=== PATIENT | male | born 1970 | race Caucasian/White ===

== ENCOUNTER 2016-06-14 15:54 | Emergency (ER) | payer MEDICARE, MEDICAID ==
[~2016-06-14] VITALS: Ht 182.9 cm; Wt 93.0 kg
[~2016-06-14 15:54] MED LIST: /LANS30GR OR; ATARAX OR; BUSP10TA2; BUSP15TA OR; RISP1TAB; RISP1TAB OR; ZOLO100T; ZOLO100T OR; ZYPR10TA OR
[2016-06-14] MEDS ORDERED: ABIL1TAB7 (16:07)
[2016-06-14] MEDS ORDERED: hydroxyzine (16:07)
[2016-06-14] MEDS ORDERED: ZOLO100T (16:07)
[2016-06-14] MEDS ORDERED: Cogentin (16:07)
[2016-06-14] MEDS ORDERED: GENTAMICIN 0.3% OPHTH SOL 5 ML BTL OS ONE (17:00)
[2016-06-14] MEDS ORDERED: CLIN1CAP5 PO (17:19)
[2016-06-14] MEDS ORDERED: IBUP80TA PO (17:19)
[2016-06-14] MEDS ORDERED: CLINDAMYCIN 150 MG CAP PO ONE (17:30)
[2016-06-14] MEDS ORDERED: PERCOCET 5MG/325MG TAB PO ONE (17:30)
[2016-06-14] MEDS ORDERED: IBUPROFEN 800 MG TAB PO ONE (17:30)
[2016-06-14 17:37] VITALS: BP 132/77
== END 2016-06-14 17:42 | disposition home or self-care (01) ==
LOC: M ED 17:41
DX: K04.7 Periapical abscess without sinus (principal); K02.9 Dental caries, unspecified; K13.79 Other lesions of oral mucosa; F17.200 Nicotine dependence, unspecified, uncomplicated; Z79.899 Other long term (current) drug therapy

== ENCOUNTER 2017-01-04 09:01 | Emergency (ER) | payer MEDICAID, MEDICARE ==
[~2017-01-04] VITALS: Ht 182.9 cm; Wt 90.3 kg
[~2017-01-04 09:01] MED LIST changes: +ABIL20TA5; +CLIN150C14 PO; +Cogentin; +IBUP80TA PO; +hydroxyzine
[2017-01-04 09:02] VITALS: BP 92/61
[2017-01-04] MEDS ORDERED: AMOX500C PO (09:58)
[2017-01-04] MEDS ORDERED: INDO25CA PO (09:58)
== END 2017-01-04 10:07 | disposition home or self-care (01) ==
LOC: M ED 09:01
DX: K12.2 Cellulitis and abscess of mouth (principal); Z79.899 Other long term (current) drug therapy

== ENCOUNTER 2017-06-13 22:07 | Emergency (ER) | payer MEDICARE ==
[2017-06-13] MEDS: AUGMENTIN 875 MG TAB PO (23:37)
[2017-06-13] MEDS: PERCOCET 5MG/325MG TAB PO (23:37)
== END 2017-06-13 23:58 | disposition home or self-care (01) ==
LOC: M ED 22:07
DX: K08.89 Other specified disorders of teeth and supporting structures (principal); R22.0 Localized swelling, mass and lump, head; Z79.899 Other long term (current) drug therapy; F17.210 Nicotine dependence, cigarettes, uncomplicated
CPT/HCPCS: 99282

== ENCOUNTER 2019-04-17 05:59 | Emergency (ER) | payer MEDICARE ==
[~2019-04-17 05:59] MED LIST changes: +AMOX500C PO; +AUGM875T28 PO; +BENZ0.5T23; +INDO-16 PO; +PERC5TAB12 PO
[2019-04-17 08:16] VITALS: BP 126/86
== END 2019-04-17 08:20 | disposition home or self-care (01) ==
LOC: M ED 05:59
DX: F20.0 Paranoid schizophrenia (principal); F17.200 Nicotine dependence, unspecified, uncomplicated; K21.9 Gastro-esophageal reflux disease without esophagitis; Z79.899 Other long term (current) drug therapy

== ENCOUNTER 2019-04-30 08:39 | Emergency (ER) | payer MEDICARE, MEDICAID ==
[~2019-04-30] VITALS: Ht 185.4 cm; Wt 97.0 kg
[2019-04-30] MEDS ORDERED: DIVA250T67 (08:48)
[2019-04-30] MEDS ORDERED: [UNRECOGNIZED DRUG - OTHER] (08:48)
[2019-04-30] MEDS ORDERED: ARIPIPRAZOLE (08:48)
[2019-04-30] MEDS ORDERED: SERT-138 (08:48)
[2019-04-30] MEDS ORDERED: PRAZ1CAP (08:48)
[2019-04-30] MEDS ORDERED: TRAZ-252 (08:48)
[2019-04-30] MEDS: ACETAMINOPHEN 325 MG TAB PO ONE ×2 (09:14→09:29)
[2019-04-30] MEDS: traMADol 50 MG TAB PO ONE ×2 (09:14→09:29)
--- NOTE | 2019-04-30 09:30 | REP ---
Clinical: Trauma. Fall. Technique: Two views of the left scapula. Findings: Nondisplaced fractures involving the [id number] scapular body noted. The acromioclavicular joint appear grossly intact. There is evidence for old healed clavicle fracture. Impression: Nondisplaced fractures involving the [id number] scapular body/wing. Electronically Signed by Balaji Merchant MD 04/30/2019 09:22 A
[2019-04-30] MEDS ORDERED: HYDR-3713 PO (10:20)
[2019-04-30 10:31] VITALS: BP 125/78
--- NOTE | 2019-04-30 10:57 | CR ---
DATE: 04/30/2019 The patient states that he was walking down the steps of his porch when he slipped on his landlord's steps newly appreciated left shoulder pain when he landed onto his left side. The pain is 10/10 and is made worse with any sort of arm movement. It is alleviated with rest and pain medications. The pain is constant, dull ache of about 4-5. This is made worse by range of motion about 7 or 8 now. Unfortunately, patient is left-hand dominant. He did deny any fever, chills, nausea, vomiting or pain elsewhere. He was able to ambulate after the fall. REVIEW OF SYSTEMS: Complete 10-system of review was conducted. Pertinent positive and negatives per the history of present illness (HPI). All other systems negative. PAST MEDICAL HISTORY: Depression. Paranoid schizophrenia. PAST SURGICAL HISTORY: Appendectomy. MEDICATIONS: The patient is on sertraline. ALLERGIES: No known drug allergies. SOCIAL HISTORY: The patient is a social drinker, he states. Denies any other illicit drug use and does use pipe tobacco. PHYSICAL EXAMINATION: Patient is awake, alert, oriented, well dressed, appropriate affect, middle-age male. Normocephalic, atraumatic. LEFT UPPER EXTREMITY: Tender to palpation with a posterior shoulder pain with shoulder range of motion. No tenderness to palpation about the elbow, wrist or fingers. Positive anterior interosseous nerve (AIN), posterior interosseous nerve (PIN), and ulnar motor function. Superficial sensory intact to radial nerve, median nerve and ulnar nerve. Skin is intact. Radial pulses 2+ and regular rate and rhythm. RIGHT UPPER EXTREMITY: No tenderness to palpation. Good range of motion of the shoulder elbow and wrist. Skin is intact. Radial pulses are 2+ regular rate. Positive anterior interosseous nerve (AIN), posterior interosseous nerve (PIN), and ulnar motor function. Superficial sensory intact to radial nerve, median nerve and ulnar nerve. BILATERAL LOWER EXTREMITIES: No tenderness to palpation. Positive range of motion in the ankle, knees and hips. Positive EHL, FHL, tibialis, and gastroc motor function. Complete sensation intact to light touch superficial peroneal, deep peroneal, sural, saphenous, and tibial distributions. Skin intact. Posterior tibial pulse 2+, regular rate. IMAGING REVIEWED: Left scapular reviewed, two views demonstrating a comminuted fracture with mild displacement of the scapular body. No fracture or dislocation of the glenohumeral joint. DIAGNOSIS: Left scapular body fracture. PLAN: I discussed with patient at this point in time this will likely heal nonoperatively. He will be in a sling for comfort but range of motion as tolerated. [id number] pain medication for pain control and he can followup with me in 2 weeks and get repeat x-ray at that time. Patient expressed understanding and in agreement with the plan.
== END 2019-04-30 10:32 | disposition home or self-care (01) ==
LOC: M ED 08:39
DX: S42.112A Displaced fracture of body of scapula, left shoulder, initial encounter for closed fracture (principal); W10.8XXA Fall (on) (from) other stairs and steps, initial encounter; Y92.098 Other place in other non-institutional residence as the place of occurrence of the external cause; F32.9 Major depressive disorder, single episode, unspecified; F20.0 Paranoid schizophrenia; F17.200 Nicotine dependence, unspecified, uncomplicated; Z79.899 Other long term (current) drug therapy

== ENCOUNTER → 2020-03-24 | Outpatient (CLI) | payer SELFPAY ==
[~2020-03-24] MED LIST changes: +ARIPIPRAZOLE; -CLIN150C14 PO; +CLIN150C15 PO; +DIVA250T67; +HYDR-3713 PO; +PRAZ1CAP; +SERT-138; +TRAZ-252; +[UNRECOGNIZED DRUG - OTHER]
== END ==
LOC: M LABSMTC 13:39
PROVIDERS: ATTEND Pediatrics
DX: Z20.822 Contact with and (suspected) exposure to COVID-19 (principal)

== ENCOUNTER → 2020-09-28 | Outpatient (CLI) | payer MEDICARE, MEDICAID ==
--- NOTE | 2020-09-28 10:49 | REP ---
INDICATION: AAA CURRENT SMOKER SCREENING. COMPARISON: None. TECHNIQUE: Real-time sonographic evaluation of the abdominal aorta performed. The study is limited due to bowel gas. FINDINGS: There is no sonographic evidence of abdominal aortic aneurysm. Maximum AP diameter of abdominal aorta: The proximal abdominal aorta and the portion at the level of the renal arteries could not be visualized. Mid abdominal aorta:1.9 cm. Distal abdominal aorta (prebifurcation): 1.5 cm. Common iliac arteries could not be visualized. IMPRESSION: No sonographic evidence of abdominal aortic aneurysm of the visualized portions, specifically of the mid and distal abdominal aorta. Proximal abdominal aorta to the level of the renal arteries, and the common iliac arteries could not be visualized. <Electronically signed by Devin Watson > 09/28/20 [id number]
== END ==
LOC: M RAD 09:06
PROVIDERS: ATTEND Student in an Organized Health Care Education/Training Program
DX: F17.200 Nicotine dependence, unspecified, uncomplicated (principal)

== ENCOUNTER → 2020-10-16 | Outpatient (CLI) | payer MEDICARE, MEDICAID ==
[~2020-10-16] MED LIST changes: -CLIN150C15 PO; +CLIN150C17 PO
--- NOTE | 2020-10-16 19:41 | REP ---
INDICATION: SPRAIN OF UNSPECIFIED LIGAMENT OF LEFT ANKLE, INIT ENCNTR COMPARISON: None. TECHNIQUE: There are four views. FINDINGS: There is no fracture or dislocation. Mineralization and joint spaces are normal. There are no calcifications or foreign bodies. IMPRESSION: Negative left ankle. <Electronically signed by Devin Silva > 10/16/201936
--- NOTE | 2020-10-16 19:42 | REP ---
INDICATION: SPRAIN OF UNSPECIFIED LIGAMENT OF LEFT ANKLE, INIT ENCNTR COMPARISON: None. TECHNIQUE: There are four views. FINDINGS: There is no fracture or dislocation. Mineralization and joint spaces are normal. There are no calcifications or foreign bodies. IMPRESSION: Negative left foot.. <Electronically signed by Devin Silva > 10/16/201937
== END ==
LOC: M RAD 17:55
PROVIDERS: ATTEND Physician Assistant
DX: S93.602A Unspecified sprain of left foot, initial encounter (principal); S93.402A Sprain of unspecified ligament of left ankle, initial encounter; X58.XXXA Exposure to other specified factors, initial encounter; Y92.9 Unspecified place or not applicable; Y93.9 Activity, unspecified; Y99.9 Unspecified external cause status

== ENCOUNTER 2024-11-26 08:35 | Emergency (ER) | payer MEDICAID, MEDICARE ==
[~2024-11-26] VITALS: Ht 182.9 cm; Wt 97.8 kg
[~2024-11-26 08:35] MED LIST changes: +BENZ0.5T2; -BENZ0.5T23
[2024-11-26 08:38] VITALS: BP 133/88; TEMP 99.3; O2SAT 96
[2024-11-26] MEDS ORDERED: ZOLO100T PO (08:48)
== END 2024-11-26 11:37 | disposition left against medical advice (07) ==
LOC: M ED 08:35
DX: F20.9 Schizophrenia, unspecified (principal); F17.210 Nicotine dependence, cigarettes, uncomplicated; F10.10 Alcohol abuse, uncomplicated; Z79.899 Other long term (current) drug therapy; Z53.9 Procedure and treatment not carried out, unspecified reason

== ENCOUNTER 2024-11-27 09:32 | Emergency (ER) | payer MEDICARE ==
[~2024-11-27] VITALS: Ht 182.9 cm; Wt 97.7 kg
[~2024-11-27 09:32] MED LIST changes: +ZOLO100T PO
[2024-11-27 09:41] VITALS: BP 126/86; TEMP 97.3; O2SAT 97
== END 2024-11-27 09:45 | disposition left against medical advice (07) ==
LOC: M ED 09:32
DX: Z53.21 Procedure and treatment not carried out due to patient leaving prior to being seen by health care provider (principal)

== ENCOUNTER 2024-11-29 20:57 | Inpatient (IN) | payer MEDICARE ==
[~2024-11-29] VITALS: Ht 182.9 cm; Wt 95.3 kg
[~2024-11-29 20:57] MED LIST changes: -DIVA250T67; +DIVA250T67 PO
[2024-11-29 21:42] LABS: PLATELET COUNT, AUTOMATED 269 10^3/uL (150-450)
[2024-11-29 21:59] LABS: AMPHETAMINES LEVEL URINE NEGATIVE (NEGATIVE)
[2024-11-29 22:00] LABS: BARBITURATES URINE NEGATIVE (NEGATIVE); CANNABINOIDS URINE NEGATIVE (NEGATIVE); COCAINE METABOLITE URINE NEGATIVE (NEGATIVE); METHADONE URINE NEGATIVE (NEGATIVE); OPIATES URINE NEGATIVE (NEGATIVE); PHENCYCLIDINE URINE NEGATIVE (NEGATIVE)
[2024-11-29 22:02] LABS: BENZODIAZEPINES URINE POSITIVE (NEGATIVE)
[2024-11-29 22:04] LABS: ETHYL ALCOHOL (ETHANOL) < 0.003 % (0.000-0.010)
[2024-11-29 22:05] LABS: SALICYLATE LEVEL < 3.0 MG/DL (<30)
[2024-11-29 22:06] LABS: ALT/SGPT 49 U/L (7.0-40); AST/SGOT 59 U/L (<34); CALCIUM LEVEL 9.1 MG/DL (8.5-10.1); CARBON DIOXIDE LEVEL 25 MMOL/L (20-31); CHLORIDE LEVEL 110 MMOL/L (98-107); CREATININE FOR GFR 1.05 MG/DL (0.70-1.30); GLOMERULAR FILTRATION RATE 83.3 (>56); POTASSIUM SERUM 4.0 MMOL/L (3.5-5.1); SODIUM LEVEL 143 MMOL/L (136-145)
[2024-11-29] MEDS: LORazepam 1 MG TAB PO STA (22:31)
[2024-11-29] MEDS ORDERED: MAALOX 30 ML SUSP *UDC PO PRN (23:15)
[2024-11-29] MEDS ORDERED: MOM 30 ML SUSPENSION UDC PO PRN (23:15)
[2024-11-30 02:57] VITALS: BP 136/72; TEMP 97; O2SAT 96
[2024-11-30] MEDS ORDERED: ABIL1INJ IM (09:15)
[2024-11-30] MEDS ORDERED: HOME MED LIST COMPLETE! XX SCH (09:20)
[2024-11-30 15:25] VITALS: BP 144/97; TEMP 97.3; O2SAT 96
[2024-11-30] MEDS: LORazepam 1 MG TAB PO PRN (17:49)
[2024-11-30] MEDS: HALOPERIDOL 5 MG TAB PO PRN (17:49)
[2024-11-30] MEDS: traZODone 50 MG TAB PO PRN (20:11)
[2024-11-30] MEDS: DIVALPROEX 500 MG *ER* TAB PO SCH (20:11)
[2024-12-01 06:26] VITALS: BP 145/68; TEMP 97.3; O2SAT 98
[2024-12-01] MEDS: PNEUMOC 21-VAL CONJ-DIP CRM/PF 0.5 ML SYRINGE IM.IMMUN ONE (09:13)
[2024-12-01] MEDS: FLUZONE VACCINE TRI PF(25-26) 0.5ML SYRINGE IM.IMMUN ONE (09:14)
[2024-12-01 15:12] VITALS: BP 126/73; TEMP 98.2; O2SAT 100
[2024-12-01] MEDS: SERTRALINE 100 MG TAB PO SCH (15:59)
[2024-12-02 06:28] VITALS: BP 136/92; TEMP 96.7; O2SAT 100
[2024-12-02] MEDS: SERTRALINE HCL 50 MG TAB PO SCH (09:34)
[2024-12-02] MEDS: ARIPiprazole MONOHYDRATE 400 MG INJ (FREE PSY INPT ONLY) IM ONE (10:50)
[2024-12-02] MEDS: ACETAMINOPHEN 325 MG TAB PO PRN (11:06)
[2024-12-02 14:59] VITALS: BP 117/69; TEMP 97.9; O2SAT 98
[2024-12-02] MEDS: IBUPROFEN 400 MG TAB PO PRN (15:53)
[2024-12-03 06:20] VITALS: BP 125/70; TEMP 98; O2SAT 98
[2024-12-03 15:26] VITALS: BP 115/74; TEMP 97; O2SAT 99
[2024-12-04] MEDS: traZODone 50 MG TAB PO ONE (01:48)
[2024-12-04 06:19] VITALS: BP 144/76; TEMP 97.3; O2SAT 98
[2024-12-04 15:20] VITALS: BP 126/73; TEMP 97.4; O2SAT 96
[2024-12-05 06:29] VITALS: BP 114/74; TEMP 97.1; O2SAT 95
[2024-12-05] MEDS: ARIPiprazole 15 MG TAB PO SCH (08:53)
[2024-12-05 15:22] VITALS: BP 139/76; TEMP 97; O2SAT 100
[2024-12-05] MEDS: traZODone 100 MG TAB PO PRN (20:30)
[2024-12-06 06:30] VITALS: BP 132/76; TEMP 97.2; O2SAT 99
[2024-12-06 14:47] VITALS: BP 125/84; TEMP 97.3; O2SAT 96
[2024-12-07 05:53] VITALS: BP 134/99; TEMP 97.8; O2SAT 100
[2024-12-07 14:38] VITALS: BP 138/78; TEMP 97.4; O2SAT 99
[2024-12-08 06:24] VITALS: BP 129/64; TEMP 97.1; O2SAT 96
[2024-12-08 15:19] VITALS: BP 138/97; TEMP 97.5; O2SAT 98
[2024-12-09 06:28] VITALS: BP 109/58; TEMP 96.5; O2SAT 96
[2024-12-09 16:24] VITALS: BP 138/84; TEMP 97.5; O2SAT 96
[2024-12-09] MEDS: traZODone 100 MG TAB PO SCH (20:27)
[2024-12-10 06:32] VITALS: BP 149/75; TEMP 97; O2SAT 92
[2024-12-10] MEDS ORDERED: ABIL1TAB12 PO (08:12)
[2024-12-10] MEDS ORDERED: TRAZ-257 PO (08:12)
[2024-12-10] MEDS ORDERED: DEPA500T2 PO (08:12)
== END 2024-12-10 10:35 | disposition home or self-care (01) | DRG 885 ==
LOC: M ED 20:57 → M ED INP 23:11 → M PSY 11-30 02:56
PROVIDERS: ADMIT Psychiatry & Neurology Neurology; ATTEND Psychiatry & Neurology Psychiatry
DX: F25.0 Schizoaffective disorder, bipolar type (principal); F41.9 Anxiety disorder, unspecified; Z79.899 Other long term (current) drug therapy; Z87.891 Personal history of nicotine dependence

== ENCOUNTER 2024-12-13 18:54 | Emergency (ER) | payer MEDICARE ==
[~2024-12-13] VITALS: Ht 182.9 cm; Wt 101.0 kg
[~2024-12-13 18:54] MED LIST changes: +ABIL1INJ IM; +ABIL1TAB12 PO; +DEPA500T2 PO; +TRAZ-257 PO
[2024-12-13 21:15] LABS: PLATELET COUNT, AUTOMATED 286 10^3/uL (150-450)
[2024-12-13 21:52] LABS: AMPHETAMINES LEVEL URINE NEGATIVE (NEGATIVE)
[2024-12-13 21:53] LABS: BARBITURATES URINE NEGATIVE (NEGATIVE); BENZODIAZEPINES URINE NEGATIVE (NEGATIVE); CANNABINOIDS URINE NEGATIVE (NEGATIVE); COCAINE METABOLITE URINE NEGATIVE (NEGATIVE); METHADONE URINE NEGATIVE (NEGATIVE); OPIATES URINE NEGATIVE (NEGATIVE); PHENCYCLIDINE URINE NEGATIVE (NEGATIVE)
[2024-12-13 21:55] LABS: ETHYL ALCOHOL (ETHANOL) < 0.003 % (0.000-0.010)
[2024-12-13 21:57] LABS: ALT/SGPT 39 U/L (7.0-40); AST/SGOT 34 U/L (<34); CALCIUM LEVEL 8.8 MG/DL (8.5-10.1); CARBON DIOXIDE LEVEL 26 MMOL/L (20-31); CHLORIDE LEVEL 107 MMOL/L (98-107); CREATININE FOR GFR 0.93 MG/DL (0.70-1.30); GLOMERULAR FILTRATION RATE > 90.0 (>56); POTASSIUM SERUM 4.6 MMOL/L (3.5-5.1); SALICYLATE LEVEL < 3.0 MG/DL (<30); SODIUM LEVEL 137 MMOL/L (136-145)
[2024-12-14 00:40] VITALS: BP 143/75; TEMP 97; O2SAT 98
[2024-12-27] MEDS ORDERED: OLAN5ZYD PO (08:27)
== END 2024-12-14 00:44 | disposition home or self-care (01) ==
LOC: M ED 18:54
DX: R46.2 Strange and inexplicable behavior (principal); Z79.899 Other long term (current) drug therapy

== ENCOUNTER 2024-12-16 01:06 | Emergency (ER) | payer MEDICARE ==
[~2024-12-16] VITALS: Ht 182.9 cm; Wt 100.7 kg
[2024-12-16 01:07] VITALS: BP 135/74; TEMP 98; O2SAT 98
== END 2024-12-16 01:57 | disposition left against medical advice (07) ==
LOC: M ED 01:06
DX: Z53.21 Procedure and treatment not carried out due to patient leaving prior to being seen by health care provider (principal)

== ENCOUNTER 2024-12-17 22:53 | Inpatient (IN) | payer MEDICARE ==
[~2024-12-17] VITALS: Ht 182.9 cm; Wt 98.1 kg
[2024-12-18 01:12] LABS: PLATELET COUNT, AUTOMATED 328 10^3/uL (150-450)
[2024-12-18 01:35] LABS: AMPHETAMINES LEVEL URINE NEGATIVE (NEGATIVE); BARBITURATES URINE NEGATIVE (NEGATIVE); BENZODIAZEPINES URINE NEGATIVE (NEGATIVE)
[2024-12-18 01:36] LABS: CANNABINOIDS URINE NEGATIVE (NEGATIVE); COCAINE METABOLITE URINE NEGATIVE (NEGATIVE); METHADONE URINE NEGATIVE (NEGATIVE); OPIATES URINE NEGATIVE (NEGATIVE); PHENCYCLIDINE URINE NEGATIVE (NEGATIVE)
[2024-12-18 01:37] LABS: ETHYL ALCOHOL (ETHANOL) < 0.003 % (0.000-0.010)
[2024-12-18 01:39] LABS: ALT/SGPT 48 U/L (7.0-40); AST/SGOT 38 U/L (<34); CALCIUM LEVEL 8.7 MG/DL (8.5-10.1); CARBON DIOXIDE LEVEL 28 MMOL/L (20-31); CHLORIDE LEVEL 104 MMOL/L (98-107); CREATININE FOR GFR 0.99 MG/DL (0.70-1.30); GLOMERULAR FILTRATION RATE 89.4 (>56); POTASSIUM SERUM 4.2 MMOL/L (3.5-5.1); SALICYLATE LEVEL < 3.0 MG/DL (<30); SODIUM LEVEL 140 MMOL/L (136-145)
[2024-12-18] MEDS ORDERED: TRAZ-257 PO (10:03)
[2024-12-18] MEDS ORDERED: ARIP1TAB10 PO (10:03)
[2024-12-18] MEDS ORDERED: HOME MED LIST COMPLETE! XX SCH (10:05)
[2024-12-18] MEDS: ACETAMINOPHEN 500 MG TAB PO PRN (10:46)
[2024-12-18] MEDS: traZODone 100 MG TAB PO PRN ×2 (13:19→20:04)
[2024-12-18] MEDS: OLANZapine ORAL DISINTEGRATING TAB 5MG PO ONE (14:15)
[2024-12-18] MEDS ORDERED: MOM 30 ML SUSPENSION UDC PO PRN (14:40)
[2024-12-18 17:04] VITALS: BP 112/74; TEMP 97.1; O2SAT 96
[2024-12-18] MEDS: IBUPROFEN 400 MG TAB PO PRN (21:27)
[2024-12-19] MEDS: traZODone 50 MG TAB PO PRN (02:54)
[2024-12-19] MEDS: ARIPiprazole 15 MG TAB PO SCH (08:25)
[2024-12-19 15:54] VITALS: BP 119/79; TEMP 97; O2SAT 99
[2024-12-19] MEDS: lamoTRIgine 25 MG TAB PO SCH (20:17)
[2024-12-20 07:02] VITALS: BP 134/65; TEMP 96.3; O2SAT 97
[2024-12-20 09:38] LABS: CHOLESTEROL LEVEL 158.0 MG/DL (<200); CHOLESTEROL RISK RATIO 3.07 (<5); LDL CHOLESTEROL 90.1 MG/DL (<100); NON-HDL-C 106.7 MG/DL; TRIGLYCERIDES LEVEL 83.0 MG/DL (<150)
[2024-12-20] MEDS: ACETAMINOPHEN 325 MG TAB PO PRN (15:14)
[2024-12-20 15:23] VITALS: BP 138/79; TEMP 97.9; O2SAT 100
[2024-12-21 06:19] VITALS: BP 134/78; TEMP 97; O2SAT 97
[2024-12-21] MEDS: SERTRALINE 100 MG TAB PO SCH (09:49)
[2024-12-21 15:47] VITALS: BP 132/69; TEMP 97.9; O2SAT 98
[2024-12-22 06:22] VITALS: BP 114/64; TEMP 98; O2SAT 98
[2024-12-22 10:16] VITALS: BP 121/76; TEMP 97.5; O2SAT 99
[2024-12-22 15:47] VITALS: BP 124/70; TEMP 97.3; O2SAT 97
[2024-12-23 06:33] VITALS: BP 125/61; TEMP 96.6; O2SAT 99
[2024-12-23 15:24] VITALS: BP 128/78; TEMP 97.6; O2SAT 100
[2024-12-23] MEDS: OLANZapine ORAL DISINTEGRATING TAB 5MG PO PRN (19:49)
[2024-12-24 06:43] VITALS: BP 122/67; TEMP 96.3; O2SAT 95
[2024-12-24] MEDS: MAALOX 30 ML SUSP *UDC PO PRN (13:07)
[2024-12-24 15:15] VITALS: BP 126/69; TEMP 97.6; O2SAT 96
[2024-12-25 06:31] VITALS: BP 128/71; TEMP 97.2; O2SAT 100
[2024-12-25 15:50] VITALS: BP 141/73; TEMP 97.9; O2SAT 98
[2024-12-26 06:46] VITALS: BP 131/63; TEMP 97.6; O2SAT 100
[2024-12-26 16:12] VITALS: BP 126/79; TEMP 97.7; O2SAT 97
[2024-12-27 06:35] VITALS: BP 123/85; TEMP 97.1; O2SAT 97
[2024-12-27] MEDS ORDERED: ZOLO100T PO (08:27)
[2024-12-27] MEDS ORDERED: OLAN5TAB24 PO (08:27)
[2024-12-27] MEDS ORDERED: LAMI25TA PO (08:27)
[2024-12-27] MEDS: ARIPiprazole MONOHYDRATE 400 MG INJ (FREE PSY INPT ONLY) IM ONE (08:46)
[2024-12-27] MEDS ORDERED: ARIPiprazole MONOHYDRATE 400 MG INJ (FREE PSY INPT ONLY) IM ONE (09:00)
== END 2024-12-27 10:10 | disposition home or self-care (01) | DRG 885 ==
LOC: M ED 22:53 → M ED INP 12-18 14:39 → M PSY 12-18 16:51
PROVIDERS: ADMIT General Practice; ATTEND Psychiatry & Neurology Psychiatry
DX: F25.0 Schizoaffective disorder, bipolar type (principal); R45.850 Homicidal ideations; F41.9 Anxiety disorder, unspecified; Z56.0 Unemployment, unspecified; Z63.0 Problems in relationship with spouse or partner; Z91.148 Patient's other noncompliance with medication regimen for other reason; Z79.899 Other long term (current) drug therapy